=== PATIENT | male | born 1995 | race Caucasian/White ===

== ENCOUNTER 2024-11-19 23:31 | Emergency (ER) | payer OTHER, SELFPAY ==
--- OUTSIDE RECORDS SUMMARY | 2024-11-19 23:32 | XMS_ITS | Clinical Summary ---
Author Organization [facility] Address [facility] [place] [address] Care Team Providers Care Faculty Member Name Role Phone Unavailable Primary Care Provider Unavailabl e Social History Tobacco Use Types Packs/Day Years Used Date Smoking Tobacco: Never Assessed Sex and Gender Information Value Date Recorded Sex Assigned at Not on file Legal Sex Male 4:10 PM CDT Gender Identity Not on file Sexual Orientation Not on file Plan of Treatment Health Maintenance Due Date Last Done Comments Annual Physical 06/09/1999 Hepatitis C 2014 DTaP, Tdap and Td Vaccines ( 1 - Tdap) 06/09/2015 Hepatitis B Vaccines (1 of 3 - 19+ 3-dose series) 06/09/2015 HPV Vaccines (1 - 3-dose SCD M series) 06/09/2023 COVID-19 Vaccine ( - 2023-2 5 season) 2024 Meningococcal B Vaccine Aged Out No l onger eligible based on patient's age to complete this topic Meningococcal Vaccine Aged Out No topher christina eligible based on patient's age to complete this topic Pneumococcal Vaccine: Pediat rics (0 to 5 Years) and At-Risk Patients (6 to 49 Years) Aged Out No longer eligible b ased on patient's age to complete this topic RSV Immunizations Under 20 Months Aged Out No longer eligible based on patient's age to complete this topic
[2024-11-19 23:35] VITALS: BP 145/90; PULSE 88; RESP 20; TEMP 36.8; O2SAT 100
--- OUTSIDE RECORDS SUMMARY | 2024-11-20 01:41 | XMS_ITS | Clinical Summary ---
Author Organization [facility] Address [address] [place] [address] Care Team Providers Care Shrink Pit Operator Name Role Phone Unavailable Primary Care Provider Unavailabl e Source Comments [facility],non-owned Affiliates and Associated Physician Practices is amultiple site organization consisting of ambulatory clinics and hospital sitesin [place], [place], [place] and [place]. This disclosure is being madepursuant to the Care Everywhere program and may not contain all information available regarding this patient. 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 Gender Identity Not on file Sexual Orientation Not on file Plan of Treatment Health Maintenance Due Date Last Done Comments HIV SCREENING 06/09/2011 HEPATITIS C SCREENING 06/04/2014 DTAP/TDAP/TD VACCINES (1 - Tdap) 06/09/2015 HEPATITIS B VACCINE (1 of 3 - 19+ 3-dose series) 06/09/2015 HPV VACCINE (1 - 3-dose SCDM series) 06/09/2023 DEPRESSION SCREENING 03/11/2024 COVID-19 VACCINE ( - 2023-2 5 season) 2024 INFLUENZA VACCINE (#1) 2024 ZOSTER VACCINE (1 of 2) 2046 HIB VACCINE Aged Out No longer eligi ble based on patient's age to complete this topic MENINGOCOCCAL (Group B) VACC INE SHARED DECISION-MAKING Aged Out No longer eligibl e based on patient's age to complete this topic MENINGOCOCCAL GROUPS A/C/Y/W VACCINE Aged Out No longer eligible b ased on patient's age to complete this topic PNEUMOCOCCAL VACCINE Aged Out No long er eligible based on patient's age to complete this topic
--- OUTSIDE RECORDS SUMMARY | 2024-11-20 01:41 | XMS_ITS | Clinical Summary ---
Author Organization [facility] Address [facility] [place] [address] Care Team Providers Care Farm Adviser Name Role Phone Unavailable Primary Care Provider [...]
--- NOTE | 2024-11-20 01:50 | ED.EPISTAXIS ---
HPI - Epistaxis General Chief complaint: Epistaxis Stated complaint: nose bleed Time Seen by Provider: 11/20/24 01:34 Source: patient Mode of arrival: ambulatory Limitations: no limitations History of Present Illness HPI Narrative: Patient presents the emergency department for bleeding from the base of his nose. Bleeding has now stopped without intervention. Related Data Allergies Allergy/AdvReac Type Severity Reaction Status Date / Time No Known Allergies Allergy Verified 11/19/24 23:37 Review of Systems Review of Systems: All systems reviewed & are unremarkable except as noted in HPI and below PMFSH Surgical History Surgical History Hx of removal of testicle age 15 for undescended testicle Hx of right inguinal hernia repair 03/2021, no complications with procedure done at [facility] in [place] Family History Family History Grandparent Diabetes mellitus Thyroid disorder Grandparent Heart disease Social History Social History Smoking status: Never smoker Alcohol intake: current Alcohol use details: rarely Substance use: never Lack of Transportation: No Lack of Food: Never True Current Housing: I Have Housing Concerned About Future Housing: No Difficulty Paying Gas/Electric Bills: No Difficulty Paying for Meds: No Currently Unemployed: No Education: High School Diploma/GED Difficulty w/ Childcare or Family Care: No Occupation/Education: occupation Additional occupation/education comments: [employer] Exam Narrative: GENERAL: Well-appearing, well-nourished, and in no acute distress. HEAD: Normocephalic, atraumatic. EYES: EOMI. ENT: Nares clear, no rhinorrhea or epistaxis. Mucous membranes moist. Oropharynx without tonsillar hypertrophy exudate or other lesions. CHEST: No respiratory distress. HEART: Regular rate EXTREMITIES: Normal range of motion. No edema. SKIN: Warm, dry, no rash. NEURO: No focal deficits. Alert and oriented x3. PSYCH: Normal mood and affect Course Vital Signs Vital signs: Vital Signs Temperature 98.2 F 11/19/24 23:35 Pulse Rate 88 11/19/24 23:35 Respiratory Rate 20 11/19/24 23:35 Blood Pressure 145/90 H 11/19/24 23:35 Pulse Oximetry 100 11/19/24 23:35 Oxygen Delivery Room Air 11/19/24 23:35 Temperature 98.2 F 11/19/24 23:35 Pulse Rate 88 11/19/24 23:35 Respiratory Rate 20 11/19/24 23:35 Blood Pressure 145/90 H 11/19/24 23:35 Pulse Oximetry 100 11/19/24 23:35 Oxygen Delivery Room Air 11/19/24 23:35 MDM - Epistaxis MDM Narrative Medical decision making narrative: Patient presents the emergency department for bleeding from the base of his nose. This was controlled without intervention. Will be given follow-up with ENT as he says he has problems with nose bleeds frequently. He was given warnings to return to the ER Differential Diagnosis Differential diagnosis: Likely anterior epistaxis and posterior epistaxis Critical Care Time Critical Care Time Critical Care Time: No Discharge Plan Discharge Clinical Impression: Epistaxis Patient Disposition: Home Condition: Stable Instructions: Nosebleed (ED) Additional Instructions: Return to the emergency department if you experience nose bleed your unable to control, or any other symptoms that are concerning to you Avoid trauma/picking the nose. Keep the nares moist with Vaseline Follow up with ENT if needed Patient Language: Pashto Prescriptions: No Action methylphenidate HCl 36 mg tablet extended release 24hr 36 mg PO QAM Qty: 30 0RF Follow-up/Referrals: Thom Echevarria MD [Physician, Ear, Nose, Throat] Racquel Slaughter APRN [Primary Care Provider, Family Practice]
[2024-11-20 02:04] VITALS: BP 129/82; PULSE 84; RESP 20; O2SAT 100
== END 2024-11-20 02:06 | disposition home or self-care (01) ==
PROVIDERS: Emergency Provider Physician Assistant; PCP Nurse Practitioner Family
DX: R04.0 Epistaxis (principal)
CPT/HCPCS: 99281